=== PATIENT | male | born 1945 | race Caucasian/White ===

== ENCOUNTER 2024-03-27 07:23 | Day surgery (SDC) | payer OTHER, SELFPAY ==
[2024-03-27] VITALS (24 sets, daily range): BP systolic 109–178; BP diastolic 68–94; BMI 29.4
[2024-03-27] MEDS: NSS 307 ML IV (08:20)
[2024-03-27 08:23] LABS: Glucose - Point of Care 138 mg/dl (70-99)
[2024-03-27 08:33] LABS: Hematocrit 39.2 % (39.0-52.0); Hemoglobin 13.9 g/dL (13.0-18.0); Mean Corp Hgb Conc. 35.5 g/dL (33.0-37.0); Mean Corpuscular Hgb 31.5 pg (27.0-31.0); Mean Corpuscular Volume 88.9 fL (80.0-94.0); Mean Platelet Volume 10.8 fL (7.4-10.4); Platelet Count 220 10^3/uL (130-400); Red Blood Cell Count 4.41 10^6/uL (4.70-6.10); Red Cell Dist. Width 12.4 % (11.5-14.5); White Blood Cell Count 9.2 10^3/uL (4.8-10.8)
[2024-03-27 09:18] LABS: ALT (SGPT) 34 U/L (0-50); AST (SGOT) 36 U/L (17-59); Albumin 4.7 g/dl (3.5-5.0); Alkaline Phosphatase 76 U/L (38-126); Blood Urea Nitrogen 19 mg/dl (9-20); Calcium 9.2 mg/dl (8.4-10.2); Carbon Dioxide 24 mmol/L (22-30); Chloride 105 mmol/L (98-107); Estimated Creatinine Clearance 52 ml/min; Glucose 149 mg/dl (70-99); Potassium 4.3 mmol/L (3.5-5.1); Sodium 137 mmol/L (135-145); Total Bilirubin 0.8 mg/dl (0.2-1.3); Total Protein 8.6 g/dl (6.3-8.2); eGFR 55.53
[2024-03-27 10:09] LABS: ACT-LR - POC 263 Seconds (116-155)
[2024-03-27 10:44] LABS: ACT-LR - POC 305 Seconds (116-155)
--- NOTE | 2024-03-27 11:25 | PTCARENOTE ---
Dr Sin at pt bedside speaking to pt.
[2024-03-27] MEDS: NSS 1000 IV (11:33)
--- NOTE | 2024-03-27 11:41 | ITS.CL.CATH ---
[employer] - Catheterization
Cardiac Catheterization
Procedure Report:
LEFT HEART CATH AND CORONARY INTERVENTION
Date of Procedure: March 27, 2024
Referring: Dr. Valdez Man
PROCEDURES:
1. Left heart catheterization with coronary and single-plane left ventriculography
2. Successful stenting of the proximal circumflex into a large first obtuse marginal branch with placement of a 3.0 x 22 mm Major stent that was implanted at nominal pressures and postdilated with a 3.25 mm noncompliant balloon at 8 kevin on the
distal edge of the stent and 16 kevin within the midportion of the stent and 20 kevin proximal-mid
INDICATION: This is an 78-year-old gentleman with a past medical history notable for hypertension and remote peptic ulcer disease as well as hyperlipidemia. He was seen as part of a new patient evaluation by Dr. Valdez Man on 03/21/2024 with
complaints of chest discomfort with exertion intermittently over the past 4 to 5 months. His stress study was notable for poor exercise tolerance with the development of chest discomfort at low levels of exercise and he is now referred for coronary
angiography.
ACCESS: Right radial artery, 6 Hebrew sheath
HEMODYNAMICS (mmHg):
AO (s/d, m) : 124/69, 68
LV (s/d) : 137/9
LVEDP : 20
CORONARY FINDINGS
Dominance: Right
LEFT MAIN: Short and unobstructed
LEFT ANTERIOR DESCENDING: The LAD is moderately calcified and arises normally from the left main running in the anterior interventricular groove. The a large septal cascade arises from the proximal LAD. The mid LAD beyond the first septal
vacuum tester cans has diffuse noncritical luminal irregularities. There is a small-medium caliber diagonal branch that arises from the mid LAD and has a 50% mid stenosis. The LAD beyond the diagonal branch has a 50-60% stenosis in its mid to distal
portion
CIRCUMFLEX: The circumflex is a medium caliber nondominant vessel. OM1 is a diminutive bifurcating vessel. There is a 95% stenosis in the mid circumflex extending into OM2. OM2 supplies a large territory. The circumflex then continues in the AV
groove supplying several diminutive posterolateral branches.
RIGHT CORONARY: The right coronary artery is a medium caliber nondominant vessel with moderate coronary calcification over its course
VENTRICULOGRAPHY: The digital single-plane left ventricular ejection fraction is estimated at 65%. No regional wall motion abnormalities are noted
ANGIOPLASTY PROCEDURE DETAIL: Upon review of the diagnostic catheterization films the decision was made to proceed with percutaneous revascularization of the high-grade stenosis in the mid circumflex extending into the proximal portion of OM 2. A
600 mg loading dose of clopidogrel was given. Intravenous heparin was administered and the ACT was monitored throughout the procedure. The origin of the left main was cannulated with a 6 Hebrew EBU 3.75 guiding catheter and a short BMW guidewire
was advanced across the high-grade mid circumflex/OM 2 stenosis while a long BMW guidewire was advanced to the AV continuation of the circumflex with a moderate degree of difficulty. Balloon predilation was performed with a 2.25 mm Trek balloon was
inflated to nominal pressures. Plaque shift resulted in transient loss of flow to the AV circumflex and balloon predilation was performed using the 2.25 trek balloon that was inflated to rather low pressures restoring antegrade flow. A 3.0 x 22 mm
Major stent was then advanced over the guidewire but would not easily cross the stenosis in the proximal portion of OM 2 and the stent was removed. Redilation was performed with a 2.25 x 12 mm Trek NC balloon. At this point the 3.0 x 22 mm Major
stent across the stenosis in the circumflex and into OM 2 where it was position with angiographic and fluoroscopic guidance. The stent was implanted at nominal pressures and postdilated with a 3.25 mm noncompliant balloon to 8 kevin distally, 14-16
kevin in the midportion of the stent where OM2 originates and to 20 kevin in the proximal to midportion of the stent with a nice angiographic result. The AV continuation of the circumflex had LENO 3 flow with no significant stenosis
RADIATION SUMMARY: Fluoro Time (min): 24.3, Dose (mGy): 1398, DAP (Gy.cm2) : 90.6
CONCLUSIONS
1. Successful stenting of the mid circumflex-OM 2 with a 3.0 x 22 mm Xience stent that was implanted at nominal pressures and postdilated to high pressures with a 3.25 mm noncompliant balloon as described above
2. Preserved LV systolic function
RECOMMENDATIONS
1. Uninterrupted dual antiplatelet therapy with aspirin and clopidogrel for 6-12 months followed by aspirin daily.
2. Continue GI prophylaxis
Copy to: Dr. Valdez Man, Dr. Agustín Dykes
[2024-03-27 12:48] LABS: ACT-LR - POC > 397 Seconds (116-155)
--- NOTE | 2024-03-27 13:52 | PTCARENOTE ---
Pt's accucheck is 189. Pt is going to order lunch tray. Pt takes metformin once daily (last dose yesterday morning) and does not check his accucheck at home. Celi Shepard NP made aware of accucheck. No further treatment ordered at this time. Will
conitnue to monitor.
[2024-03-27 13:58] LABS: Glucose - Point of Care 189 mg/dl (70-99)
--- NOTE | 2024-03-27 15:06 | W.PN.UPDATE ---
Update Note
Progress Note Update
78 yo WM s/p PCI LCx (same day). He feels good, no cp, sob, zoie diet, voiding, amb w/o dizziness, EKG SB no new ST changes, R rad site c/d/i no HT. He will be on DAPT ASA/Plavix. He will hold his metformin 48 hours post cath. Cardiac rehab c/s. He
will f/u [facility] in 2-4 weeks. He is for d/c home after 4pm.
PROCEDURES:
1. Left heart catheterization with coronary and single-plane left ventriculography
2. Successful stenting of the proximal circumflex into a large first obtuse marginal branch with placement of a 3.0 x 22 mm Major stent that was implanted at nominal pressures and postdilated with a 3.25 mm noncompliant balloon at 8 kevin on the
distal edge of the stent and 16 kevin within the midportion of the stent and 20 kevin proximal-mid
INDICATION: This is an 78-year-old gentleman with a past medical history notable for hypertension and remote peptic ulcer disease as well as hyperlipidemia. He was seen as part of a new patient evaluation by Dr. Valdez Man on 03/21/2024 with
complaints of chest discomfort with exertion intermittently over the past 4 to 5 months. His stress study was notable for poor exercise tolerance with the development of chest discomfort at low levels of exercise and he is now referred for coronary
angiography.
== END 2024-03-27 16:10 | disposition home or self-care (01) ==
LOC: CATH 07:23
PROVIDERS: ATTENDING PHYSICIAN Internal Medicine Interventional Cardiology; FAMILY PHYSICIAN Physician Assistant Medical; OTHER PHYSICIAN Internal Medicine Cardiovascular Disease
DX: I25.10 Atherosclerotic heart disease of native coronary artery without angina pectoris (principal); I10 Essential (primary) hypertension; Z87.11 Personal history of peptic ulcer disease; E78.5 Hyperlipidemia, unspecified; R07.89 Other chest pain; Z79.02 Long term (current) use of antithrombotics/antiplatelets; Z79.82 Long term (current) use of aspirin; I25.84 Coronary atherosclerosis due to calcified coronary lesion
CPT/HCPCS: 80053; 82962; 85027; 93005; 93458; C1725; C1769; C1874; C1894; C9600; Q9967

== ENCOUNTER 2024-05-07 15:13 | Outpatient (RCR) | payer OTHER, SELFPAY ==
[2024-04-28 11:28] LABS: Glucose - Point of Care 120 mg/dl (70-99)
[2024-04-30 14:41] LABS: Glucose - Point of Care 152 mg/dl (70-99)
[2024-04-30 15:40] LABS: Glucose - Point of Care 120 mg/dl (70-99)
[2024-05-05 14:54] LABS: Glucose - Point of Care 127 mg/dl (70-99)
[2024-05-07 14:36] LABS: Glucose - Point of Care 145 mg/dl (70-99)
[2024-05-07 15:34] LABS: Glucose - Point of Care 138 mg/dl (70-99)
[2024-05-14 14:45] LABS: Glucose - Point of Care 132 mg/dl (70-99)
[2024-05-14 15:42] LABS: Glucose - Point of Care 106 mg/dl (70-99)
[2024-05-19 15:01] LABS: Glucose - Point of Care 99 mg/dl (70-99)
[2024-05-19 16:10] LABS: Glucose - Point of Care 104 mg/dl (70-99)
[2024-05-21 14:50] LABS: Glucose - Point of Care 110 mg/dl (70-99)
[2024-05-21 15:52] LABS: Glucose - Point of Care 112 mg/dl (70-99)
[2024-05-26 14:50] LABS: Glucose - Point of Care 115 mg/dl (70-99)
[2024-05-26 15:51] LABS: Glucose - Point of Care 115 mg/dl (70-99)
== END 2024-05-07 23:59 | disposition home or self-care (01) ==
LOC: CRHB 15:13
PROVIDERS: ATTENDING PHYSICIAN Internal Medicine Cardiovascular Disease
DX: I25.10 Atherosclerotic heart disease of native coronary artery without angina pectoris (principal); Z95.5 Presence of coronary angioplasty implant and graft
CPT/HCPCS: 82962; G0422; G0423

== ENCOUNTER → 2024-05-12 15:45 | Outpatient (REF) | payer OTHER, SELFPAY | LOC: HWRCS 15:45 | PROVIDERS: ATTENDING PHYSICIAN Internal Medicine Cardiovascular Disease; FAMILY PHYSICIAN Physician Assistant Medical | DX: I49.1 Atrial premature depolarization (principal) | CPT/HCPCS: 93306 ==

== ENCOUNTER → 2024-05-23 13:38 | Outpatient (REF) | payer OTHER, SELFPAY | LOC: RAD 13:38 | PROVIDERS: ATTENDING PHYSICIAN Internal Medicine Cardiovascular Disease; FAMILY PHYSICIAN Physician Assistant Medical | DX: Z13.6 Encounter for screening for cardiovascular disorders (principal) | CPT/HCPCS: 76770 ==

== ENCOUNTER 2024-06-11 15:25 | Outpatient (RCR) | payer OTHER, SELFPAY | END 2024-06-11 23:59 | disposition home or self-care (01) | LOC: CRHB 15:25 | PROVIDERS: ATTENDING PHYSICIAN Internal Medicine Cardiovascular Disease | DX: I25.10 Atherosclerotic heart disease of native coronary artery without angina pectoris (principal); Z95.5 Presence of coronary angioplasty implant and graft | CPT/HCPCS: G0422; G0423 ==

== ENCOUNTER 2024-07-09 15:33 | Outpatient (RCR) | payer OTHER, SELFPAY | END 2024-07-09 23:59 | disposition home or self-care (01) | LOC: CRHB 15:33 | PROVIDERS: ATTENDING PHYSICIAN Internal Medicine Cardiovascular Disease | DX: I25.10 Atherosclerotic heart disease of native coronary artery without angina pectoris (principal); Z95.5 Presence of coronary angioplasty implant and graft | CPT/HCPCS: G0422; G0423 ==

== ENCOUNTER 2024-08-11 15:39 | Outpatient (RCR) | payer OTHER, SELFPAY | END 2024-08-11 23:59 | disposition home or self-care (01) | LOC: CRHB 15:39 | PROVIDERS: ATTENDING PHYSICIAN Internal Medicine Cardiovascular Disease | DX: I25.10 Atherosclerotic heart disease of native coronary artery without angina pectoris (principal); Z95.5 Presence of coronary angioplasty implant and graft | CPT/HCPCS: G0422; G0423 ==

== ENCOUNTER 2024-08-29 16:30 | Outpatient (RCR) | payer OTHER, SELFPAY | END 2024-08-29 23:59 | disposition home or self-care (01) | LOC: CRHB 16:30 | PROVIDERS: ATTENDING PHYSICIAN Internal Medicine Cardiovascular Disease | DX: I25.10 Atherosclerotic heart disease of native coronary artery without angina pectoris (principal); Z95.5 Presence of coronary angioplasty implant and graft | CPT/HCPCS: G0422; G0423 ==